=== PATIENT | male | born 1990 | race Two or more races ===

== ENCOUNTER 2022-10-17 11:34 | Emergency (ER) | payer OTHER ==
[~2022-10-17] VITALS: Ht 175.3 cm; Wt 122.5 kg
[2022-10-17] MEDS ORDERED: GLUMETZA500 MG PO (11:41)
== END 2022-10-17 14:40 | disposition home or self-care (01) ==
LOC: ER 11:34
DX: E11.9 Type 2 diabetes mellitus without complications (principal); G43.909 Migraine, unspecified, not intractable, without status migrainosus

== ENCOUNTER 2025-05-18 11:25 | Emergency (ER) | payer OTHER ==
[~2025-05-18] VITALS: Ht 175.3 cm; Wt 116.1 kg
[~2025-05-18 11:25] MED LIST: GLUMETZA500 MG PO
[2025-05-18] MEDS ORDERED: BUTALB/ACETAMINOPHEN/CAFFEINE 1 TAB TABLET PO ONE ×2 (14:15→14:26)
[2025-05-18 14:43] LABS: BASO % 0.5 % (0.1-1.2); EOS # 0.54 (0.04-0.54); EOS % 6.3 % (0.7-7.0); LYMPH # 2.61 (1.18-3.74); LYMPH % 30.5 % (19.3-53.1); MEAN PLATELET VOLUME 10.10 fl (9.4-12.4); MONO # 0.61 (0.24-0.82); MONO % 7.1 % (4.7-12.5); NEUT # 4.74 (1.56-6.13); NEUT % 55.5 % (34.0-71.1); RED CELL DISTRIBUTION WIDTH 12.5 % (11.6-14.4)
[2025-05-18 15:10] LABS: URINE APPEARANCE Clear; URINE BILIRRUBIN Negative (NEGATIVE); URINE BLOOD Negative; URINE COLOR Yellow; URINE GLUCOSE Negative (NEGATIVE); URINE KETONE Negative (NEGATIVE); URINE LEUKOCYTE Negative; URINE NITRATE Negative; URINE PROTEIN Negative (NEGATIVE); URINE UROBILINOGEN 1.0 E.U./dl
[2025-05-18 15:11] LABS: URINE BACTERIA 573.6 uL (0.0-1933); URINE EPITHELIAL CELLS 53.9 uL (0.0-38.8); URINE RBC 2.0 uL (0.0-20.8); URINE WBC 7.6 uL (0.0-23.2)
[2025-05-18 15:12] LABS: ALT/SGPT 30.0 U/L (12-78); AST/SGOT 16.0 U/L (15-37); BILIRUBIN TOTAL 0.32 mg/dL (0.3-1.2); BUN CREA RATIO 20.0 (7.0-25.0); CREATININE SERUM 0.69 mg/dL (0.70-1.30); GFR 129.74; GLOBULINA 4.2 G/DL (2.4-3.5); GLUCOSE FASTING 133.0 mg/dL (65-100); OSMOLALITY SERUM 278.0 MOSM/KG (275-295)
[2025-05-18 15:22] LABS: URINE CAST 0.00 uL (0.0-1.40)
[2025-05-18 16:12] LABS: COVID-19 AG NEGATIVE (NEGATIVE)
== END 2025-05-18 19:19 | disposition home or self-care (01) ==
LOC: ER 11:26
PROVIDERS: General Practice
DX: R07.89 Other chest pain (principal); Z20.822 Contact with and (suspected) exposure to COVID-19; E11.9 Type 2 diabetes mellitus without complications; Z79.84 Long term (current) use of oral hypoglycemic drugs; G43.909 Migraine, unspecified, not intractable, without status migrainosus